=== PATIENT | male | born 1985 | race Caucasian/White ===

== ENCOUNTER → 2021-08-19 | Outpatient (CLI) | payer OTHER ==
[2021-08-19 16:03] LABS: Basophils # (A) 0.1 k/uL (0-0.2); Basophils % (A) 1 %; Eosinophils # (A) 0.2 k/uL (0-0.7); Eosinophils % (A) 2 %; HCT 46.8 % (39.0-53.0); HGB 15.5 gm/dL (13.0-17.5); Lymphocytes # (A) 1.9 k/uL (1.0-4.8); Lymphocytes % (A) 27 %; MCH 30.3 pg (25.0-35.0); MCHC 33.2 g/dL (31.0-37.0); Monocytes # (A) 0.4 k/uL (0-1.0); Monocytes % (A) 5 %; Neutrophils # (A) 4.6 k/uL (1.3-7.7); Neutrophils % (A) 64 %; Platelet Count 288 k/uL (150-450); RBC 5.13 m/uL (4.30-5.90); RDW 12.3 % (11.5-15.5); WBC 7.1 k/uL (3.8-10.6)
[2021-08-19 16:09] LABS: ALT 43 U/L (4-49); AST 31 U/L (17-59); African American GFR (CKD) >90 (>60 ml/min/1.73 sqM); Albumin 4.4 g/dL (3.5-5.0); Albumin/Globulin Ratio 1.2; Alkaline Phosphatase 98 U/L (38-126); Anion Gap 11 mmol/L; Blood Urea Nitrogen 15 mg/dL (9-20); Calcium 9.6 mg/dL (8.4-10.2); Carbon Dioxide 25 mmol/L (22-30); Chloride 101 mmol/L (98-107); Globulin 3.7 g/dL; Glucose 92 mg/dL (74-99); Non-African American GFR(CKD) >90 (>60 ml/min/1.73 sqM); Potassium 4.8 mmol/L (3.5-5.1); Sodium 137 mmol/L (137-145); Total Bilirubin 0.5 mg/dL (0.2-1.3); Total Protein 8.1 g/dL (6.3-8.2)
--- NOTE | 2021-08-19 16:43 | CT ---
EXAMINATION TYPE: CT abdomen pelvis w con DATE OF EXAM: 08/19/2021 COMPARISON: None available HISTORY: LLQ pain. Stat hold and call CT DLP: 586.60 mGycm Automated exposure control for dose reduction was used. TECHNIQUE: Helical acquisition of images was performed from the lung bases through the pelvis. CONTRAST: Performed with Oral Contrast and with IV Contrast, patient injected with 100 mL of Isovue 300. FINDINGS: LUNG BASES: No significant abnormality is appreciated. LIVER/GB: No significant abnormality is appreciated. PANCREAS: No significant abnormality is seen. SPLEEN: Tiny splenic calcifications likely related to previous granulomatous infection, otherwise unr emarkable spleen. ADRENALS: No significant abnormality is seen. KIDNEYS: No significant abnormality is seen. FREE AIR: No free air is visualized. ADENOPATHY: Scattered millimetric mesenteric and inguinal lymph nodes. No pathologically enlarged ly mph nodes in the abdomen or the pelvis. REPRODUCTIVE ORGANS: No significant abnormality is seen URINARY BLADDER: No significant abnormality is seen. OSSEOUS STRUCTURES: No significant abnormality is seen. BOWEL: Unremarkable stomach, duodenum and small bowel. Acute diverticulitis involving the inferior a spect of the descending colon with surrounding fat stranding, reactive fluid and peritoneal reflectio n thickening. No definite abscess formation or signs of perforation. The remainder of the colon demon strates uncomplicated colonic diverticulosis mainly in the sigmoid colon. Mild wall thickening of the colon, underlying chronic colitis cannot be excluded. Normal appendix. OTHER: Unremarkable abdominal aorta and IVC. No sizable ascites. Fat-containing left inguinal hernia. Small fat-containing umbilical hernia. IMPRESSION: Acute diverticulitis involving the inferior aspect of the descending colon as described above. No bouchra dence of perforation or abscess formation. Other incidental findings as detailed above.
== END | disposition home or self-care (01) ==
LOC: RADCTMAIN 13:54
PROVIDERS: ATTEND Family Medicine
DX: K57.92 Diverticulitis of intestine, part unspecified, without perforation or abscess without bleeding (principal)
CPT/HCPCS: 80053; 85025; 74177; Q9967

== ENCOUNTER → 2023-02-25 | Outpatient (CLI) | payer OTHER ==
--- NOTE | 2023-02-25 12:18 | CT ---
EXAMINATION TYPE: CT chest w con CT DLP: 251 mGycm, Automated exposure control for dose reduction was used. DATE OF EXAM: 02/25/2023 10:39 AM COMPARISON: CT 08/19/2022 CLINICAL INDICATION:Male, 38 years old with history of R91.8 ABNORMAL LUNG FIELD; PHH, Abn CT, lung n odules TECHNIQUE: Multiple axial images were obtained through the chest. Sagittal and coronal reformats were created for review. Contrast used:100 mL of Isovue 300 with IV Contrast (None if empty) Oral contrast used: (None if empty) FINDINGS: LUNGS/ PLEURA: Stable appearing right upper lobe calcified granuloma. Stable right lower lobe posteri or nodule measuring 4 mm series 4 image 42. Stable left lower lobe inferior lateral 3 mm pulmonary no dule series 4 image 51. No evidence of focal consolidation, pneumothorax or pleural effusion. AIRWAY: Patent and unremarkable. HEART: Size within normal limits. MEDIASTINUM: No gross evidence of adenopathy. VASCULATURE: No aortic aneurysm. MUSCULOSKELETAL: No acute osseous abnormalities SOFT TISSUES/LYMPH NODES: Unremarkable. LOWER NECK: No significant findings. UPPER ABDOMEN: Calcified grams in the spleen. IMPRESSION: Stable pulmonary nodules. No suspicious pulmonary nodules. No acute thoracic process.
== END | disposition home or self-care (01) ==
LOC: RADCTMAIN 10:00
PROVIDERS: ATTEND Internal Medicine Critical Care Medicine
DX: R91.8 Other nonspecific abnormal finding of lung field (principal)
CPT/HCPCS: 71260; Q9967

== ENCOUNTER 2023-08-27 13:44 | Emergency (ER) | payer OTHER ==
[2023-08-27] MEDS: IBUPROFEN 600 MG TAB PO STA (14:22)
[2023-08-27] MEDS: ACETAMINOPHEN TAB 500 MG TAB PO STA (14:22)
--- NOTE | 2023-08-27 14:53 | XR ---
EXAMINATION TYPE: XR chest 2V DATE OF EXAM: 08/27/2023 2:35 PM CLINICAL INDICATION:Male, 38 years old with history of cough and fever; COMPARISON: None TECHNIQUE: XR chest 2V Frontal and lateral views of the chest. FINDINGS: Lungs/Pleura: There is no evidence of pleural effusion, focal consolidation, or pneumothorax. Pulmonary vascularity: Unremarkable. Heart/mediastinum: Cardiomediastinal silhouette is unremarkable. Musculoskeletal: No acute osseous pathology. IMPRESSION: No acute cardiopulmonary disease/process.
--- NOTE | 2023-08-27 15:51 | ED ---
Fever HPI - General Chief Complaint: Fever Stated Complaint: high fever/allergic reaction Time Seen by Provider: 08/27/23 14:01 Source: patient Mode of arrival: ambulatory Limitations: no limitations - Related Data Previous Rx's Medication Instructions Recorded Fluticasone Nasal [place] [Flonase 2 spray EA NOSTRIL DAILY #16 gm 08/27/23 Nasal [place]] Levofloxacin [Levaquin] 750 mg PO DAILY 7 Days #7 tab 08/27/23 Allergies Allergy/AdvReac Type Severity Reaction Status Date / Time No Known Allergies Allergy Verified 08/27/23 13:51 Review of Systems ROS Statement: Those systems with pertinent positive or pertinent negative responses have been documented in the HPI. ROS Other: All systems not noted in ROS Statement are negative. Past Medical History Additional Past Medical History / Comment(s): Spots in lungs and pancreas, Additional Past Surgical History / Comment(s): root cannal, Past Psychological History: No Psychological Hx Reported Smoking Status: Former smoker Past Alcohol Use History: Rare Past Drug Use History: None Reported General Exam Limitations: no limitations Course Vital Signs 08/27/23 13:47 Temperature 102.9 F H Pulse Rate 115 H Respiratory 20 Rate Blood Pressure 131/79 O2 Sat by Pulse 95 Oximetry Medical Decision Making - Lab Data Lab Results 08/27/23 08/27/23 Range/Units 14:14 14:19 Influenza Type A (PCR) Not Detected (Not Detectd) Influenza Type B (PCR) Not Detected (Not Detectd) RSV (PCR) Not Detected (Not Detectd) SARS-CoV-2 (PCR) Not Detected (Not Detectd) Group A Strep (PCR) NOT DETECTED (Not Detectd) Disposition Clinical Impression: Fever, Sinusitis, Cough, Sore throat Disposition: HOME SELF-CARE Condition: Good Instructions (If sedation given, give patient instructions): Fever in Adults (ED), Sinusitis (ED) Additional Instructions: Please also use Afrin nasal spray for the next 3 days. Please use Tylenol and/or Motrin as needed for fever. Please increase fluid hydration for the next 3 days. Prescriptions: Fluticasone Nasal [place] [Flonase Nasal [place]] 2 spray EA NOSTRIL DAILY #16 gm Levofloxacin [Levaquin] 750 mg PO DAILY 7 Days #7 tab Is patient prescribed a controlled substance at d/c from ED?: No Referrals: Fernando Mijares DO [Primary Care Provider] - 1-2 days Time of Disposition: 15:48
[2023-08-27 16:25] VITALS: BP 122/89; PULSE 101; RESP 18; TEMP 100.8
--- NOTE | 2023-08-27 21:28 | ED ---
Fever HPI - General Chief Complaint: Fever Stated Complaint: high fever/allergic reaction Time Seen by Provider: 08/27/23 14:01 Source: patient Mode of arrival: ambulatory Limitations: no limitations - History of Present Illness Initial Comments: This 38-year-old male presents with a complaint of a fever. He states that he has had this intermittently over the past 2 weeks but it seemed to improve for a while and then got worse over the past 5 days. He has had a temperature up to 104 degrees. He states that he has severe nasal congestion. He has had a slight sore throat. He also has a slight cough. He complains of significant chills at times. He was seen at an urgent care 2 days ago and was prescribed Zithromax, Medrol Dosepak, albuterol, and Mucinex DM. He states that his symptoms have persisted despite these medications. He denies any chest pain or shortness of breath. No other complaints or modifying factors. - Related Data Previous Rx's Medication Instructions Recorded Fluticasone Nasal [place] [Flonase 2 spray EA NOSTRIL DAILY #16 gm 08/27/23 Nasal [place]] Levofloxacin [Levaquin] 750 mg PO DAILY 7 Days #7 tab 08/27/23 Allergies Allergy/AdvReac Type Severity Reaction Status Date / Time No Known Allergies Allergy Verified 08/27/23 13:51 Review of Systems ROS Statement: Those systems with pertinent positive or pertinent negative responses have been documented in the HPI. ROS Other: All systems not noted in ROS Statement are negative. Past Medical History Additional Past Medical History / Comment(s): Spots in lungs and pancreas, Additional Past Surgical History / Comment(s): root cannal, Past Psychological History: No Psychological Hx Reported Smoking Status: Former smoker Past Alcohol Use History: Rare Past Drug Use History: None Reported General Exam - General Exam Comments Initial Comments: GENERAL: The patient is well nourished and well hydrated. VITAL SIGNS: Heart rate, blood pressure, respiratory rate reviewed as recorded in nurse's notes. EYES: Pupils are round and reactive. Extraocular movements are intact. No conjunctival / lid redness or swelling. ENT: No external evidence of injury, swelling, or ecchymosis. Airway is patent. Throat is clear. NECK: Nontender. No swelling or evidence of injury. No subcutaneous emphysema. Trachea is midline. No thyroid mass. HEART: Regular rate and rhythm. Good peripheral pulses. LUNGS/CHEST: Breath sounds clear and equal bilaterally. No rales, rhonchi, or wheezes. No ecchymosis, subcutaneous emphysema, or tenderness. ABDOMEN: Abdomen soft without tenderness. No palpable masses or organomegaly. No peritoneal signs. No abdominal wall swelling or ecchymosis. EXTREMITIES: No extremity tenderness. Normal muscle tone and function. No thoracolumbar tenderness. NEUROLOGIC: Sensation is grossly intact. Cranial nerve exam reveals face is symmetrical, tongue is midline, speech is clear. SKIN: No abrasions or ecchymosis is noted. No induration or masses noted. PSYCHIATRIC: Alert and oriented. Appropriate behavior and judgment. Limitations: no limitations Course Vital Signs 08/27/23 08/27/23 13:47 16:06 Temperature 102.9 F H 100.8 F H Pulse Rate 115 H 101 H Respiratory 20 18 Rate Blood Pressure 131/79 122/89 O2 Sat by Pulse 95 96 Oximetry Medical Decision Making - Medical Decision Making The patient was seen and examined. All diagnostics are reviewed. Chest x-ray was done and does not show any acute abnormalities per my interpretation. The viral studies are negative. Strep screen is negative. It is felt as though he does have a sinusitis. It is felt as though the Zithromax might not be covering this very well. He has been on it for 2 days without any relief. He is instructed to stop the Zithromax. Levaquin is prescribed at 750 mg daily for 7 days. Flonase also was prescribed. Afrin is recommended to utilize over the next 3 days only. He is to continue with the other medications. Close follow- up with primary care recommended. Return parameters are discussed. He also r eceives Tylenol as well as Motrin and his fever does come down significantly. Was pt. sent in by a medical professional or institution (, PA, FRONT DESK, urgent care, hospital, or skilled nursing...) When possible be specific @ -No Did you speak to anyone other than the patient for history (EMS, parent, family, police, friend...)? What history was obtained from this source @ -No Did you review nursing and triage notes (agree or disagree)? Why? @ -I reviewed and agree with nursing and triage notes Were old charts reviewed (outside hosp., previous admission, EMS record, old EKG, old radiological studies, urgent care reports/EKG's, skilled nursing records)? Report findings @ -No old charts were reviewed Differential Diagnosis (chest pain, altered mental status, abdominal pain women, abdominal pain men, vaginal bleeding, weakness, fever, dyspnea, syncope, headache, dizziness, GI bleed, back pain, seizure, CVA, palpatations, mental health, musculoskeletal)? @ -Sinusitis, upper respiratory infection, viral infection, bronchitis, pneumonia. EKG interpreted by me (3pts min.). @ -Not done X-rays interpreted by me (1pt min.). @ -No acute process per my interpretation. CT interpreted by me (1pt min.). @ -None done U/S interpreted by me (1pt. min.). @ -None done What testing was considered but not performed or refused? (CT, X-rays, U/S, labs)? Why? @ -None What meds were considered but not given or refused? Why? @ -None Did you discuss the management of the patient with other professionals (professionals i.e. , PA, FRONT DESK, lab, RT, psych nurse, high school social studies tutor, engineer fishing vessel, teacher, disability liaison officer, watch caser)? Give summary @ -No Was smoking cessation discussed for >3mins.? @ -No Was critical care preformed (if so, how long)? @ -No Were there social determinants of health that impacted care today? How? (Homelessness, low income, unemployed, alcoholism, drug addiction, transportation, low edu. Level, literacy, decrease access to med. care, intermediate, rehab)? @ -No Was there de-escalation of care discussed even if they declined (Discuss DNR or withdrawal of care, Hospice)? DNR status @ -No What co-morbidities impacted this encounter? (DM, HTN, Smoking, COPD, CAD, Cancer, CVA, ARF, Chemo, Hep., AIDS, mental health diagnosis, sleep apnea, morbid obesity)? @ -None Was patient admitted / discharged? Hospital course, mention meds given and route, prescriptions, significant lab abnormalities, going to OR and other pertinent info. @ -Patient was discharged home. Please see above. Undiagnosed new problem with uncertain prognosis? @ -No Drug Therapy requiring intensive monitoring for toxicity (Heparin, Nitro, Insulin, Cardizem)? @ -No Were any procedures done? @ -No Diagnosis/symptom? @ -Fever, sinusitis Acute, or Chronic, or Acute on Chronic? @ -Acute Uncomplicated (without systemic symptoms) or Complicated (systemic symptoms)? @ -Uncomplicated Side effects of treatment? @ -No Exacerbation, Progression, or Severe Exacerbation? @ -No Poses a threat to life or bodily function? How? (Chest pain, [place], [place], pneumonia, PE, COPD, DKA, ARF, appy, cholecystitis, CVA, Diverticulitis, Homicidal, Suicidal, threat to staff... and all critical care pts) @ -No - Lab Data Lab Results 08/27/23 08/27/23 Range/Units 14:14 14:19 Influenza Type A (PCR) Not Detected (Not Detectd) Influenza Type B (PCR) Not Detected (Not Detectd) RSV (PCR) Not Detected (Not Detectd) SARS-CoV-2 (PCR) Not Detected (Not Detectd) Group A Strep (PCR) NOT DETECTED (Not Detectd) Disposition Clinical Impression: Fever, Sinusitis, Cough, Sore throat Disposition: HOME SELF-CARE Condition: Good Instructions (If sedation given, give patient instructions): Sinusitis (ED), Fever in Adults (ED) Additional Instructions: Please also use Afrin nasal spray for the next 3 days. Please use Tylenol and/or Motrin as needed for fever. Please increase fluid hydration for the next 3 days. Prescriptions: Fluticasone Nasal [place] [Flonase Nasal [place]] 2 spray EA NOSTRIL DAILY #16 gm Levofloxacin [Levaquin] 750 mg PO DAILY 7 Days #7 tab Is patient prescribed a controlled substance at d/c from ED?: No Referrals: Fernando Mijares DO [Primary Care Provider] - 1-2 days Time of Disposition: 06:00
== END 2023-08-27 16:08 | disposition home or self-care (01) ==
LOC: EC 13:44
DX: J02.9 Acute pharyngitis, unspecified (principal); J32.9 Chronic sinusitis, unspecified; Z20.822 Contact with and (suspected) exposure to COVID-19; Z87.891 Personal history of nicotine dependence
CPT/HCPCS: 71046; 87636; 87651; 99283

== ENCOUNTER → 2024-03-18 | Outpatient (CLI) | payer OTHER ==
--- NOTE | 2024-03-20 20:02 | CT ---
EXAMINATION TYPE: CT chest w con DATE OF EXAM: 03/18/2024 COMPARISON: 02/25/2023 HISTORY: lung nodules CT DLP: 255 mGycm, Automated exposure control for dose reduction was used. CONTRAST: Performed injected with 100 mL of Isovue 300. TECHNIQUE: Axial images were obtained at 5 mm thick sections. Reconstructed images are reviewed on [employer] computer in the coronal plane. FINDINGS: Portion of the thyroid visualized is normal. Large benign round calcifications in the anterior right upper lung field. This was present previously No enlarged mediastinal or hilar adenopathy is evident. The ascending aorta diameter at the level o f the main pulmonary artery is 2.6 cm. The main pulmonary artery diameter at the bifurcation is 2.[address] sections are obtained through the upper abdomen. Abdomen is essentially unremarkable. IMPRESSION: 1. No suspicious acute changes. 2. Stable calcified nodule right lung [facility], Workstation: [facility], 03/20/2024 8:00 PM
== END | disposition home or self-care (01) ==
LOC: RADCTMAIN 08:48
PROVIDERS: ATTEND Internal Medicine Critical Care Medicine
DX: R91.8 Other nonspecific abnormal finding of lung field (principal)
CPT/HCPCS: 71260; Q9967